=== PATIENT | male | born 1975 | race Hispanic/Latino ===

== ENCOUNTER 2017-07-06 20:23 | Emergency (ER) | payer OTHER ==
[~2017-07-06] VITALS: Ht 172.7 cm; Wt 97.0 kg
[~2017-07-06 20:23] MED LIST: ANTI-FUNGAL12 TOP; NYSTATIN100000 M3 TOP
[2017-07-06 23:20] VITALS: BP 147/102
== END 2017-07-06 23:40 | disposition left against medical advice (07) | DRG 914 ==
LOC: ED 20:23
DX: S61.042A Puncture wound with foreign body of left thumb without damage to nail, initial encounter (principal); R50.9 Fever, unspecified; W31.89XA Contact with other specified machinery, initial encounter; Y93.89 Activity, other specified; Y92.89 Other specified places as the place of occurrence of the external cause; Z91.19 Patient's noncompliance with other medical treatment and regimen

== ENCOUNTER 2022-10-24 01:40 | Emergency (ER) | payer SELFPAY ==
[~2022-10-24] VITALS: Ht 172.7 cm; Wt 100.0 kg
[2022-10-24] VITALS (9 sets, daily range): BP systolic 98–173; BP diastolic 65–98
[2022-10-24 02:21] LABS: BASO% 0.4 % (0-3); EOS% 3.2 % (0-8); HEMATOCRIT 45.8 % (39.0-50.0); HEMOGLOBIN 15.7 g/dl (14.0-18.0); LYMPH% 25.1 % (15-41); MEAN CELL VOLUME 84.7 fL CALC (80.0-100.0); MEAN CORPUSCULAR HGB CONC 34.3 g/dL CAL (32.0-36.0); MONO% 6.7 % (2-13); NEUT# 5.23 thou/uL (1.82-7.42); NEUT% 63.6 % (42-76); RED BLOOD COUNT 5.41 mill/uL (4.70-6.10); RED CELL DISTRI WIDTH 11.7 % (11.5-15.5); URINE BILIRUBIN - DIPSTICK NEGATIVE (NEGATIVE); URINE BLOOD DIPSTICK NEGATIVE (NEGATIVE); URINE COLOR YELLOW; URINE GLUCOSE - DIPSTICK NEGATIVE (NEGATIVE); URINE KETONE NEGATIVE (NEGATIVE); URINE LEUK ESTERASE NEGATIVE (NEGATIVE); URINE NITRITE - DIPSTICK NEGATIVE (Negative); URINE PH 6.5 (4.5-8.0); URINE PROTEIN - DIPSTICK NEGATIVE (NEG-TRACE); URINE UROBILINOGEN - DIPSTICK 0.2 E.U./dL (0.2)
[2022-10-24 02:36] LABS: ALBUMIN 4.6 g/dL (3.2-5.0); ALKALINE PHOSPHATASE 95 u/l (38-126); AMYLASE 59 u/l (30-110); ANION GAP 15 (6-22 (CALC)); BILIRUBIN, TOTAL 0.5 mg/dL (0.2-1.3); BUN 11 mg/dL (9-20); BUN/CREATININE RATIO 11 (12-20 (CALC)); CARBON DIOXIDE 26 mmol/l (22-30); CHLORIDE 103 mmol/l (95-108); GFR FOR AFR.AMER. > 60 ML/MIN (>=60 (CALC)); GFR OTHER RACES > 60 ML/MIN (>=60 (CALC)); LIPASE 75 u/l (23-300); POTASSIUM 4.2 mmol/l (3.5-5.1); SGOT/AST 59 u/l (17-59); SODIUM 140 mmol/l (137-146); TOTAL PROTEIN 7.8 g/dL (6.3-8.2)
[2022-10-24] MEDS ORDERED: NAPROXEN500 MG PO (05:14)
[2022-10-24] MEDS ORDERED: TAMSULOSIN0.4 MG PO (05:15)
== END 2022-10-24 05:35 | disposition home or self-care (01) | DRG 694 ==
LOC: ED 01:40
PROVIDERS: Emergency Medicine
DX: N13.2 Hydronephrosis with renal and ureteral calculous obstruction (principal)
CPT/HCPCS: Q9967